=== PATIENT | female | born 1995 | race Caucasian/White ===

== ENCOUNTER 2017-08-14 18:08 | Emergency (ER) | payer OTHER ==
[2017-08-14 18:14] VITALS: BP 125/92; PULSE 101; RESP 18; TEMP 98.4; O2SAT 98
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
== END 2017-08-14 22:04 | disposition home or self-care (01) ==
LOC: EEVIPCON 18:08
DX: Z04.41 Encounter for examination and observation following alleged adult rape (principal)